=== PATIENT | male | born 1955 | race African-American/Black ===

== ENCOUNTER 2021-04-28 00:42 | Emergency (ER) | payer OTHER ==
[~2021-04-28] VITALS: Ht 180.3 cm; Wt 99.8 kg
[~2021-04-28 00:42] MED LIST: ENALAPRIL; LISIPOW
[2021-04-28 01:49] LABS: Basophils # (auto) 0 10 ^3/uL (0-0.2); Basophils % (auto) 0.2 % (0.0-2.0); Eosinophils # (auto) 0 10 ^3/uL (0-0.8); Eosinophils % (auto) 0.1 % (0.0-7.0); Hematocrit 45.8 % (41.0-53.0); Hemoglobin 14.8 g/dL (13.5-17.5); Lymphocytes # (auto) 1.1 10 ^3/uL (0.4-5.4); Lymphocytes % (auto) 10.3 % (10.0-50.0); Mean Corpuscular Hemoglobin 28.8 pg (28.0-32.0); Mean Corpuscular Hgb Conc. 32.3 g/dL (32.0-36.0); Monocytes # (auto) 0.6 10 ^3/uL (0-1.3); Monocytes % (auto) 5.9 % (0.0-12.0); Neutrophils # (auto) 8.9 10 ^3/uL (1.6-8.6); Neutrophils % (auto) 83.5 % (37.0-80.0); Red Blood Cells 5.15 10^6/uL (4.5-5.90); Red Cell Distribution Width 13.7 % (11.8-14.3); White Blood Cell 10.6 10^3/uL (4.4-10.8)
[2021-04-28 02:03] LABS: INR 1.05 (0.9-1.15); Partial Thromboplastin Time 29.9 sec (23.6-33.0)
[2021-04-28 02:05] LABS: Calcium 9.9 mg/dL (8.5-10.1)
[2021-04-28 02:09] LABS: Lactic Acid w/Reflex 2.2 mmol/L (0.4-2.0)
[2021-04-28 02:10] LABS: Bilirubin, Total 0.4 mg/dL (0.2-1.0); Total Protein 8.8 g/dL (6.4-8.2)
[2021-04-28] MEDS ORDERED: ONDANSETRON HCL 4 MG/2 ML VIAL IV ONE (02:15)
[2021-04-28] MEDS ORDERED: HYDROmorphone HCL 2 MG/ML VL IV ONE (02:15)
[2021-04-28 02:52] LABS: Urine Bacteria NONE SEEN /hpf (None Seen); Urine Blood Negative /uL (Negative); Urine Mucus FEW (None Seen); Urine Specific Gravity 1.014 (1.001-1.035); Urine WBC 7 /hpf (0 - 3)
[2021-04-28] MEDS ORDERED: DICY10CA PO (04:01)
[2021-04-28] MEDS ORDERED: ONDA-144 PO (04:01)
[2021-04-28 04:30] VITALS: BP 156/101
== END 2021-04-28 04:50 | disposition home or self-care (01) ==
LOC: EDBD 00:42 → ER 00:42
DX: R10.13 Epigastric pain (principal); R11.2 Nausea with vomiting, unspecified; I10 Essential (primary) hypertension; F17.210 Nicotine dependence, cigarettes, uncomplicated; Z88.6 Allergy status to analgesic agent; Z85.46 Personal history of malignant neoplasm of prostate
CPT/HCPCS: 36415; 71045; 74176; 80053; 81001; 82150; 83605; 83690; 83735; 84484; 85025; 85610; 85730; 87040; 93005; 96374; 96375; 99285; J1170; J2405

== ENCOUNTER 2022-11-09 05:55 | Emergency (ER) | payer OTHER ==
[~2022-11-09] VITALS: Ht 175.3 cm; Wt 93.2 kg
[~2022-11-09 05:55] MED LIST changes: +DICY10CA PO; +ONDA-144 PO
[2022-11-09 06:52] VITALS: PULSE 116; RESP 20; O2SAT 98
[2022-11-09] MEDS ORDERED: ONDANSETRON HCL 4 MG/2 ML VIAL IV ONE (07:30)
[2022-11-09] MEDS ORDERED: HYDROmorphone HCL 2 MG/ML VL/or syr IV ONE (07:30)
[2022-11-09 07:35] LABS: Albumin 4.2 g/dL (3.4-5.0); Calcium 9.6 mg/dL (8.5-10.1); Magnesium 2.5 mg/dL (1.6-2.6); Potassium 3.8 mmol/L (3.5-5.1)
[2022-11-09 07:38] LABS: Basophils # (auto) 0.1 10 ^3/uL (0-0.2); Basophils % (auto) 0.7 % (0.0-2.0); Bilirubin, Total 0.6 mg/dL (0.2-1.0); Eosinophils # (auto) 0.1 10 ^3/uL (0-0.8); Eosinophils % (auto) 0.5 % (0.0-7.0); Hematocrit 45.8 % (41.0-53.0); Lymphocytes # (auto) 1.4 10 ^3/uL (0.4-5.4); Lymphocytes % (auto) 12.3 % (10.0-50.0); Mean Corpuscular Hemoglobin 29.2 pg (28.0-32.0); Mean Corpuscular Hgb Conc. 32.7 g/dL (32.0-36.0); Mean Corpuscular Volume 89.3 fL (80.0-100.0); Monocytes # (auto) 0.6 10 ^3/uL (0-1.3); Monocytes % (auto) 5.4 % (0.0-12.0); Neutrophils # (auto) 9.4 10 ^3/uL (1.6-8.6); Neutrophils % (auto) 81.1 % (37.0-80.0); Nucleated Red Blood Cells % 0.1 %; Red Blood Cells 5.13 10^6/uL (4.5-5.90); Red Cell Distribution Width 13.2 % (11.8-14.3); Total Protein 8.5 g/dL (6.4-8.2); White Blood Cell 11.6 10^3/uL (4.4-10.8)
[2022-11-09 08:00] VITALS: PULSE 109; RESP 18; TEMP 98.3; O2SAT 97
[2022-11-09 09:00] VITALS: BP 159/90; PULSE 99; RESP 14; O2SAT 93
[2022-11-09 10:14] LABS: COVID19 ANTIGEN SOFIA FIA NEGATIVE (NEGATIVE)
== END 2022-11-09 09:40 | disposition home or self-care (01) ==
LOC: EDBD 05:55 → ER 05:55
DX: R10.84 Generalized abdominal pain (principal); I10 Essential (primary) hypertension; F17.210 Nicotine dependence, cigarettes, uncomplicated; Z86.73 Personal history of transient ischemic attack (TIA), and cerebral infarction without residual deficits; Z85.46 Personal history of malignant neoplasm of prostate; Z98.890 Other specified postprocedural states; Z88.6 Allergy status to analgesic agent; Z79.899 Other long term (current) drug therapy; Z20.822 Contact with and (suspected) exposure to COVID-19
CPT/HCPCS: 36415; 74176; 80053; 83690; 83735; 84484; 85025; 87426; 93005; 96374; 96375; 99285; J1170; J2405